=== PATIENT | female | born 1970 | race Hispanic/Latino ===

== ENCOUNTER 2017-05-18 08:24 | Outpatient (CLI) | payer BC ==
--- NOTE | 2017-05-18 09:36 | Ultrasound Report ---
ULTRASOUND ABDOMEN COMPLETE: Technique: Transabdominal ultrasound with color Doppler interrogation. History: Right upper quadrant abdominal pain. Findings: The liver is normal size, contour and echotexture. The gallbladder dimensions are within normal limits without intraluminal stone, wall thickening, or pericholecystic fluid. The CBD is normal caliber. The visualized portions of the pancreas including the head and proximal body are within normal limits. The kidneys demonstrate no hydronephrosis or mass. Cortical thickness and echogenicity are within normal limits bilaterally. The spleen and aorta are within normal limits. No aneurysmal dilatation is noted. No ascites. The bladder is unremarkable. IMPRESSION: Unremarkable abdominal ultrasound.
== END 2017-05-18 08:25 | disposition home or self-care (01) ==
LOC: US 08:24
PROVIDERS: ATTEND Internal Medicine
DX: R10.11 Right upper quadrant pain (principal)
CPT/HCPCS: 76700

== ENCOUNTER 2019-09-29 15:05 | Outpatient (CLI) | payer BC ==
[2019-09-29 15:33] LABS: Basophils % (Auto) 0.5 % (0.0-1.8); Eosinophils # (Auto) 0.3 K/mm3 (0.0-0.4); Eosinophils % (Auto) 3.5 % (0.0-4.3); Hematocrit 35.9 % (30.3-42.9); Hemoglobin 11.7 gm/dl (10.1-14.3); Lymphocytes # (Auto) 1.8 K/mm3 (1.2-5.4); Mean Corpuscular HGB Conc 33 % (30-34); Mean Corpuscular Volume 86 fl (79-97); Monocytes # (Auto) 0.8 K/mm3 (0.0-0.8); Monocytes % (Auto) 9.2 % (0.0-7.3); Platelet Count 281 K/mm3 (140-440); Red Blood Count 4.17 M/mm3 (3.65-5.03)
[2019-09-29 16:05] LABS: Alanine Aminotransferase 13 units/L (7-56); Albumin 4.2 g/dL (3.9-5); BUN/Creatinine Ratio 15; Blood Urea Nitrogen 12 mg/dL (7-17); Calcium 8.9 mg/dL (8.4-10.2); Chol/HDL Ratio 2.62 %; HDL Cholesterol 67 mg/dL (40-59); Hemolysis Index 6; LDL Cholesterol,Direct 97 mg/dL (50-130)
== END 2019-09-29 15:06 | disposition home or self-care (01) ==
LOC: LAB 15:05
PROVIDERS: ATTEND Family Medicine
DX: Z13.220 Encounter for screening for lipoid disorders (principal); I10 Essential (primary) hypertension; Z91.040 Latex allergy status
CPT/HCPCS: 36415; 80053; 80061; 84443; 85025

== ENCOUNTER 2021-04-08 08:33 | Outpatient (CLI) | payer BC ==
--- NOTE | 2021-04-08 09:52 | Mammography Report ---
DIGITAL SCREENING MAMMOGRAM WITH CAD, 04/08/2021 CLINICAL INFORMATION / INDICATION: Routine screening mammography. TECHNIQUE: Digital bilateral 2D mammography was obtained in the craniocaudal and mediolateral obliqu e projections. This examination was interpreted with the benefit of Computer-Aided Detection analysis . COMPARISON: None available. FINDINGS: Breast Density: There are scattered areas of fibroglandular density. No dominant mass, suspicious calcifications, or architectural distortion in either breast. IMPRESSION: No mammographic evidence of malignancy. Follow up recommendation: Routine yearly BI-RADS Category 1: Negative. A "normal" or negative report should not discourage follow up or biopsy of a clinically significant f inding. A written summary of these findings will be mailed to the patient. The patient will be entered into a mammography reporting system which will generate a reminder letter for the patient's next appointmen t at the appropriate interval. The [employer] recommends yearly mammograms starting at age 40 and continuing as l millie as a woman is in good health. Breast MRI is recommended for women with an approximate 20-25% or greater lifetime risk of breast cancer, including women with a strong family history of breast or ova cinthya cancer or who have been treated for Hodgkin's disease. Signer Name: Matthew Aleman MD Signed: 04/08/2021 9:48 AM Workstation Name: [id number]
== END 2021-04-08 08:34 | disposition home or self-care (01) ==
LOC: MAMMO 08:33
PROVIDERS: ATTEND Obstetrics & Gynecology
DX: Z12.31 Encounter for screening mammogram for malignant neoplasm of breast (principal); N64.89 Other specified disorders of breast
CPT/HCPCS: 77067